=== PATIENT | female | born 1930 | race Two or more races ===

== ENCOUNTER 2018-10-28 21:04 | Inpatient (IN) | payer MEDICARE, MEDICAID ==
[~2018-10-28] VITALS: Ht 160 cm; Wt 49.9 kg
--- NOTE | 2018-10-28 21:10 | NUR ---
ED Nurse Note: Received report from emt that patient was brought in because she was unable to meri assistive device.
--- NOTE | 2018-10-28 21:20 | Emergency Room Report ---
History of Present Illness General Chief Complaint: Generalized Weakness Source: EMS Present Illness HPI Patient is an 88-year-old female brought in by EMS after increased generalized weakness. Patient was noted to have increased weakness all over. She is normally able to move her wheelchair by herself. Patient was unable to perform this maneuver at this time. Patient had no recent trauma. She was currently being treated with antibiotics for a urinary tract infection. She had not been vomiting. History is limited by patient's dementia and poor historian.Patient had not been noted to have any vomiting or fever at the facility. Allergies: Coded Allergies: No Known Allergies (Unverified , 10/28/18) Patient History Past Medical History: see triage record Last Menstrual Period: NILSA Now: No Reviewed Nursing Documentation: PMH: Agreed; PSxH: Agreed Nursing Documentation-PMH Hx Cardiac Problems: No - encephalopathy, hyperlipidemia History Of Psychiatric Problem: Yes - schizophrenia, anxiety, alzheimers Review of Systems All Other Systems: limited - by poor historian Physical Exam Vital Signs Date Time Temp Pulse Resp B/P (MAP) Pulse Ox O2 Delivery O2 Flow Rate FiO2 10/28/18 21:06 97.5 72 16 97/50 95 Room Air General Appearance: non-toxic, thin, Chronically Ill Head: normocephalic Neck: normal inspection, full range of motion Respiratory: normal inspection, lungs clear, normal breath sounds, no rhonchi Cardiovascular #1: normal peripheral pulses, regular rate, rhythm, no edema Gastrointestinal: normal inspection Musculoskeletal: normal inspection, back normal, digits/nails normal Neurologic: normal inspection, alert, responsive, motor weakness Skin: normal inspection, normal color Medical Decision Making Diagnostic Impression: Primary Impression: Episode of generalized weakness Additional Impression: Dehydration ER Course Patient presented for generalized weakness. Differential diagnosis included was not limited to anemia, urinary tract infection, electrolyte abnormality, hypothyroidism, myocardial infarction, myasthenia gravis, dehydration, among others. Because of complexity of patient's case laboratory testing and imaging studies were ordered. Patient was noted to have unremarkable white blood count. Patient was noted to have no evidence of significant anemia. Patient started on IV fluids. She did not show any evidence of focal neurologic deficit. EKG interpreted by me showed normal sinus rhythm with a rate of [address] or T wave changes. QTc was noted to be 471 which is slightly prolonged. QT prolongation is likely due to patient's recent Cipro use.Patient was started on IV fluids. Dr. Michael Dillard was contacted for inpatient management Labs Test 10/28/18 23:30 White Blood Count 6.3 K/UL (4.8-10.8) Red Blood Count 3.77 M/UL (4.20-5.40) Hemoglobin 12.2 G/DL (12.0-16.0) Hematocrit 34.6 % (37.0-47.0) Mean Corpuscular Volume 92 FL (80-99) Mean Corpuscular Hemoglobin 32.3 PG (27.0-31.0) Mean Corpuscular Hemoglobin Concent 35.1 G/DL (32.0-36.0) Red Cell Distribution Width 11.7 % (11.6-14.8) Platelet Count 178 K/UL (150-450) Mean Platelet Volume 7.2 FL (6.5-10.1) Neutrophils (%) (Auto) 46.5 % (45.0-75.0) Lymphocytes (%) (Auto) 39.6 % (20.0-45.0) Monocytes (%) (Auto) 9.5 % (1.0-10.0) Eosinophils (%) (Auto) 3.0 % (0.0-3.0) Basophils (%) (Auto) 1.4 % (0.0-2.0) Sodium Level 141 MMOL/L (136-145) Potassium Level 3.9 MMOL/L (3.5-5.1) Chloride Level 106 MMOL/L (98-107) Carbon Dioxide Level 29 MMOL/L (21-32) Anion Gap 6 mmol/L (5-15) Blood Urea Nitrogen 21 mg/dL (7-18) Creatinine 0.9 MG/DL (0.55-1.30) Estimat Glomerular Filtration Rate mL/min (>60) Glucose Level 130 MG/DL (74-106) Lactic Acid Level 0.90 mmol/L (0.4-2.0) Calcium Level 9.0 MG/DL (8.5-10.1) Phosphorus Level 3.3 MG/DL (2.5-4.9) Magnesium Level 1.9 MG/DL (1.8-2.4) Total Bilirubin 0.4 MG/DL (0.2-1.0) Aspartate Amino Transf (AST/SGOT) 17 U/L (15-37) Alanine Aminotransferase (ALT/SGPT) 21 U/L (12-78) Alkaline Phosphatase 111 U/L (46-116) Total Creatine Kinase 26 U/L (26-308) Creatine Kinase MB 0.5 NG/ML (0.0-3.6) Creatine Kinase MB Relative Index 1.9 Troponin I 0.010 ng/mL (0.000-0.056) Total Protein 7.3 G/DL (6.4-8.2) Albumin 3.2 G/DL (3.4-5.0) Globulin 4.1 g/dL Albumin/Globulin Ratio 0.8 (1.0-2.7) EKG Diagnostic Results Rate: normal Rhythm: NSR ST Segments: no acute changes Last Vital Signs Date Time Temp Pulse Resp B/P (MAP) Pulse Ox O2 Delivery O2 Flow Rate FiO2 10/28/18 21:06 97.5 72 16 97/50 95 Room Air Status: improved Disposition: ADMITTED INPATIENT Condition: Serious Derek Shaw MD Oct 28, 2018 21:19
[2018-10-28] MEDS ORDERED: NAMENDA10 MG ORAL (21:44)
[2018-10-28] MEDS ORDERED: LEVAQUIN500 MG ORAL (21:44)
[2018-10-28] MEDS ORDERED: ATORVASTATIN CA10 MG ORAL (21:44)
[2018-10-28] MEDS ORDERED: QUETIAPINE FUMA25 MG ORAL (21:44)
[2018-10-28] MEDS ORDERED: LACTULOSE10 GM/153 PO (21:44)
[2018-10-28 21:51] VITALS: BP 97/50
[2018-10-28 23:50] LABS: ANION GAP 6 mmol/L (5-15); BASOPHILS % (AUTO) 1.4 % (0.0-2.0); BLOOD UREA NITROGEN 21 mg/dL (7-18); CARBON DIOXIDE 29 MMOL/L (21-32); CHLORIDE 106 MMOL/L (98-107); CREATININE 0.9 MG/DL (0.55-1.30); HEMATOCRIT 34.6 % (37.0-47.0); HEMOGLOBIN 12.2 G/DL (12.0-16.0); LYMPHOCYTES % (AUTO) 39.6 % (20.0-45.0); MEAN CORPUSCULAR VOLUME 92 FL (80-99); MONOCYTES % (AUTO) 9.5 % (1.0-10.0); NEUTROPHILS % (AUTO) 46.5 % (45.0-75.0); PLATELET COUNT 178 K/UL (150-450); POTASSIUM 3.9 MMOL/L (3.5-5.1); RED BLOOD COUNT 3.77 M/UL (4.20-5.40); RED CELL DISTRIBUTION WIDTH 11.7 % (11.6-14.8); SODIUM 141 MMOL/L (136-145); WHITE BLOOD COUNT 6.3 K/UL (4.8-10.8)
[2018-10-29] VITALS (7 sets, daily range): BP systolic 102–122; BP diastolic 61–68
--- NOTE | 2018-10-29 | NUR ---
ED Nurse Note: Assumed care of pt per CN; Pt in bed resting on magnetic doctor with no distress noted.
[2018-10-29 00:03] LABS: ALANINE AMINOTRANSFERASE 21 U/L (12-78); ALBUMIN 3.2 G/DL (3.4-5.0); ALBUMIN/GLOBULIN RATIO 0.8 (1.0-2.7); ALKALINE PHOSPHATASE 111 U/L (46-116); ASPARTATE AMINO TRANSFERASE 17 U/L (15-37); BILIRUBIN,TOTAL 0.4 MG/DL (0.2-1.0); CKMB 0.5 NG/ML (0.0-3.6); CREATINE KINASE 26 U/L (26-308); PHOSPHORUS 3.3 MG/DL (2.5-4.9)
--- NOTE | 2018-10-29 01:02 | NUR ---
ED Nurse Note: Received Bridge orders for MD Dillard from [facility]. Will endorse to floor RN during report.
--- NOTE | 2018-10-29 01:24 | NUR ---
ED Nurse Note: Report given to Laura Busby RN on over telephone. Pt stable. Waiting for assistance to take the pt to the floor.
--- NOTE | 2018-10-29 01:55 | NUR ---
NURSE NOTES: Received pt. from ED via criss. Pt. transferred to bed without any incident. [place] pt. to room, unit, and hospital policies. Received report from LIDA Arana. radiation monitor is in placed, IV site intact, asymptomatic, and patent, bed is in the lowest position and locked, call light within reach. No acute distress noted at this time. Will call Dr. Dillard for admission orders.
--- NOTE | 2018-10-29 02:00 | NUR ---
NURSE NOTES: Received bridging orders from ED physician until orders are received from admitting physician.
--- NOTE | 2018-10-29 06:03 | NUR ---
NURSE NOTES: Received admission orders from Dr. Dillard. Will note and carry out.
--- NOTE | 2018-10-29 07:20 | NUR ---
HAND-OFF: Report given to LIDA Villela. Pt. is in stable condition. Plan of care endorsed.
--- NOTE | 2018-10-29 07:31 | NUR ---
NURSE NOTES: received report from LIDA Sanchez. Bed is in lowest position, side rails up X2, and call light is within reach. Will continue to monitor.
[2018-10-29] MEDS ORDERED: Levofloxacin 500mg tab ORAL SCH (09:00)
[2018-10-29] MEDS: Memantine 10mg tab ORAL SCH ×2 (09:21→17:38)
--- NOTE | 2018-10-29 09:33 | NUR ---
CASE MANAGEMENT:REVIEW BIBA FROM [facility] CC: GENERALIZED WEAKNESS SI:DEHYDRATION. GENERALIZED WEAKNESS 97.5 72 16 97/50 95% ON RA BUN+21 GLUCOSE+130 IS: 1L NS BOLUS CXR BLOOD CX : TO TELEMETRY IS: IVF@75/HR LEVAQUIN PO QD INTERQUAL CRITERIA MET
--- NOTE | 2018-10-29 12:05 | Diagnostic Imaging Report ---
Indication: Dyspnea Comparison: None A single view chest radiograph was obtained. Findings: Lung volumes are low. Hiatal hernia suspected. Heart is enlarged. Mild interstitial edema suspected. Bones are osteopenic. IMPRESSION: Mild interstitial edema suspected
--- NOTE | 2018-10-29 15:45 | Cardiology Report ---
APPROVED REPORT EKG Measurement Heart [id number] CO [id number] Normal sinus rhythm Normal ECG
--- NOTE | 2018-10-29 18:00 | Consultation ---
DATE OF CONSULTATION: 10/29/2018 PSYCHIATRY CONSULTATION CONSULTING PHYSICIAN: Lucrecia Milan M.D. HISTORY OF PRESENT ILLNESS: The patient is an 88-year-old female with history of dementia, multiple medical problems including encephalopathy, schizophrenia, anxiety, hyperlipidemia, who has been admitted to the hospital for medical stabilization. The patient was admitted due to general weakness. The patient is confused and unable to provide history. She is able to answer simple questions. She is a poor historian. She endorses weakness, fatigue, anxiety, and waxing and waning consciousness. PAST PSYCHIATRIC HISTORY: Schizophrenia, encephalopathy, anxiety. PAST MEDICAL HISTORY: Hyperlipidemia, hypertension. She is wheelchair bound. ALLERGIES: No known drug allergies. SUBSTANCE ABUSE HISTORY: No known history of illicit drug use or alcohol. MENTAL STATUS EXAMINATION: The patient is alert and oriented to self and place. She is a poor historian and is confused. Mood is anxious. Affect is constricted, congruent with mood. Thought process is concrete. Thought content, no suicidal or homicidal ideations. ASSESSMENT: Demorest I Dementia with behavioral disturbance, schizophrenia, anxiety disorder, encephalopathy due to toxin. Demorest II Deferred. Demorest III As above. Demorest IV Low. Demorest V 20 PLAN: 1. The patient will be continued on Seroquel 12.5 mg in the morning. 2. Start the patient on Seroquel 12.5 p.r.n. 3. Provide the patient with reality orientation. Lucrecia Milan M.D. DR: Nghia JOB#: [id number] CC:
--- NOTE | 2018-10-29 18:17 | NUR ---
NURSE NOTES: Patients heart monitor was removed. She is a transfer to room 406-1. Pt pulled out her IV a total of [address] Dillard aware that there is currently no IV access. Per , ok to dc IV
--- NOTE | 2018-10-29 19:39 | NUR ---
HAND-OFF: Report given to LIDA Tang. Plan of care endorsed.
--- NOTE | 2018-10-29 19:40 | NUR ---
NURSE NOTES: Received pt from LIDA Canales. Pt awake, alert, and talkative. Bed in lowest position. Call light within reach. Bed alarm on. Will continue to monitor.
--- NOTE | 2018-10-29 21:15 | History and Physical Report ---
DATE OF ADMISSION: 10/28/2018 HISTORY OF PRESENT ILLNESS: This is an 88-year-old female who came to the emergency room for failure to thrive, generalized weakness, nausea, and vomiting. The patient is currently alert, awake, confused and has been eating about 50%. PAST MEDICAL HISTORY: CVA, dementia, depression. ALLERGIES: NKA. MEDICATIONS: See the list. PHYSICAL EXAMINATION: GENERAL: This is an elderly female, currently confused, but looks very appropriate. VITAL SIGNS: Blood pressure 130/70, pulse 74, respirations 18. No fever. SKIN: Good skin turgor. HEENT: NAD. CHEST: Bilaterally clear. CARDIOVASCULAR: Regular rhythm. No gallop. No murmur. ABDOMEN: Soft. Positive bowel sounds. Nontender. EXTREMITIES: No CCE. NEUROLOGICAL: Generalized weakness. GENITOURINARY: Deferred. LABORATORY DATA: White count 4.3. We will check UA. ASSESSMENT: 1. Severe malnutrition. 2. Failure to thrive. 3. Dehydration, rule out UTI. 4. Encephalopathy. PLAN: We will do calorie count. GI consult. Continue Boost 3 times a day. Michael Dillard M.D. DR: Angelica JOB#: [id number] CC:
--- NOTE | 2018-10-29 22:01 | NUR ---
HAND-OFF: Report given to LIDA Kim. Pt stable.
--- NOTE | 2018-10-29 22:10 | NUR ---
NURSE NOTES: Received patient from Tele via hospital bed from Kitty HILTON. On RA, no SOB, no acute distress, in stable condition. No IV access noted d/t patient pulled out multiple times in Tele, MD aware. Checked belongings, oriented pt to surroundings. All order transferred. Bed in lowest position, locked, alarms on. Call light in reach.
[2018-10-30] VITALS: BP 126/81
[2018-10-30 04:00] VITALS: BP 138/91
--- NOTE | 2018-10-30 07:57 | NUR ---
NURSE NOTES: Patient alert x3, japanese speaking, in room air, no sign of distress and shortness of breath. No sign of chest pain. Patient on calory count started this breakfast, director of emergency nursing Charlotte is aware. Patient incontinent x2. Skin intact. No IV, MD Mccrary is aware. Call light within reach. Will keep monitoring.
[2018-10-30 08:00] VITALS: BP 146/66
[2018-10-30] MEDS: Memantine 10mg tab ORAL SCH ×2 (09:23→17:28)
--- NOTE | 2018-10-30 10:44 | NUR ---
NURSE NOTES: Patient ate well her breakfast, fed by nursing service administrator, Charlotte. Will keep monitoring patient's intake.
[2018-10-30 12:00] VITALS: BP 97/57
[2018-10-30 16:00] VITALS: BP 130/65
--- NOTE | 2018-10-30 16:33 | NUR ---
NURSE NOTES: Patient resting, no sign of distress and shortness of breath. Will keep monitoring.
--- NOTE | 2018-10-30 19:20 | NUR ---
HAND-OFF: Report given to LIDA Lazcano.
--- NOTE | 2018-10-30 19:30 | NUR ---
NURSE NOTES: Received patient in bed awake with periods of confusion. No facial grimacing noted. No IV access, MD aware. Bed in lowest position and locked. Call light within reach. Will continue to monitor.
[2018-10-30 20:00] VITALS: BP 104/67
--- NOTE | 2018-10-30 21:27 | General Progress Note ---
Assessment/Plan Status: stable Assessment/Plan Dementia with behavioral disturbance, schizophrenia, anxiety disorder, encephalopathy due to toxin. PLAN: 1. The patient will be continued on Seroquel 12.5 mg in the morning. 2. Start the patient on Seroquel 12.5 p.r.n. 3. Provide the patient with reality orientation. Subjective Neurologic/Psychiatric: Reports: anxiety, emotional problems Allergies: Coded Allergies: No Known Allergies (Unverified , 10/28/18) Objective Last 24 Hour Vital Signs Date Time Temp Pulse Resp B/P (MAP) Pulse Ox O2 Delivery O2 Flow Rate FiO2 10/30/18 20:00 97.4 74 16 104/67 (79) 95 10/30/18 16:00 98.4 80 18 130/65 (86) 96 10/30/18 12:00 98.0 72 18 97/57 (70) 96 10/30/18 09:00 Room Air 10/30/18 08:00 97.8 71 18 146/66 (92) 96 10/30/18 04:00 97.1 69 19 138/91 (107) 96 10/30/18 00:00 97.1 71 20 126/81 (96) 96 Intake and Output 10/29/18 10/30/18 19:00 07:00 Intake Total 240 ml 100 ml Balance 240 ml 100 ml Intake Oral 240 ml 100 ml # Voids 3 1 Height (Feet): 5 Height (Inches): 3.00 Weight (Pounds): 110 General Appearance: no apparent distress, alert, confused, agitated Lucrecia Milan MD Oct 30, 2018 21:27
[2018-10-31] VITALS: BP 121/57
[2018-10-31 04:00] VITALS: BP 98/62
--- NOTE | 2018-10-31 06:16 | NUR ---
NURSE NOTES: Patient positive for MRSA nares as [facility] Dillard spoke with Luis Manuel on answering service and left a message. Still awaiting call back.
--- NOTE | 2018-10-31 07:11 | NUR ---
HAND-OFF: Report given to LIDA Mitchell. Endorsed to am nurse re patient positive for MRSA nares, still awaiting call back from Dr. Dillard for further orders.
--- NOTE | 2018-10-31 07:24 | NUR ---
NURSE NOTES: Patient sleeping, in room air, no sign of distress and shortness of breath. No sign of chest pain. No IV, MD aware. Patient on calory count, surgeon assistant Nereida notified. Patient on isolation for MRSA-nares, PM RN Radha tried to notify MD last night, left a message on the answering service, will try to call back to get an order. Side rails up x2, breaks engaged, bed at lowest. Call light within reach. Will keep on monitoring.
[2018-10-31 08:00] VITALS: BP 136/80
[2018-10-31] MEDS: Memantine 10mg tab ORAL SCH ×2 (08:17→17:35)
--- NOTE | 2018-10-31 10:14 | NUR ---
NURSE NOTES: I communicated Dr Dillard, regarding patient is positive for MRSA. Waiting for order.
--- NOTE | 2018-10-31 10:16 | NUR ---
NURSE NOTES: Order received from Dr Dillard, will care the order as ordered by .
[2018-10-31 12:00] VITALS: BP 104/61
--- NOTE | 2018-10-31 12:52 | NUR ---
CASE MANAGEMENT: REVIEW 10/31/2018 SI:DEHYDRATION. GENERALIZED WEAKNESS T 98 HR 65 RR 19 B/P 104/61 SATS 96% ON RA NO LABS TODAY IS: NAMENDA PO BID MUPROCIN TOP BID LIPITOR PO QHS LEVAQUIN PO QD SEROQUEL PO QD : MED/SURG STATUS PLAN OF CARE: DC TO SNF 11/01/18
--- NOTE | 2018-10-31 12:53 | NUR ---
DISCHARGE PLANNING: NOTE PATIENT TO BE DISCHARGED TO [facility] 11/01. TRANSPORTATION TO BE ARRANGED 11/01. PATIENT TO GO TO ROOM 29D. CLINICALS FAXED TO [facility] F: [phone]/T: [phone]
--- NOTE | 2018-10-31 15:29 | Progress Note ---
SUBJECTIVE: This is an elderly female, sitting in the bed, slightly improving. OBJECTIVE: VITAL SIGNS: Stable. CHEST: Bilaterally clear. CARDIOVASCULAR: Regular rhythm. ABDOMEN: Soft. EXTREMITIES: No CCE. NEUROLOGICAL: Generalized weakness. ASSESSMENT AND PLAN: 1. Severe malnutrition. 2. Failure to thrive. 3. Dehydration. 4. Urinary tract infection. 5. Metabolic encephalopathy. We will currently continue p.o. feeding. Continue IV antibiotics. Monitor cultures. Michael Dillard M.D. DR: Douglas JOB#: [id number] CC:
[2018-10-31 16:00] VITALS: BP 100/64
--- NOTE | 2018-10-31 19:22 | NUR ---
HAND-OFF: Report given to LIDA Garcia.
--- NOTE | 2018-10-31 19:25 | NUR ---
NURSE NOTES: Received patient in bed trying to get out of bed. Move patient closer to the nursing station for fall precaution. Side rails up x3. Bed in lowest position and locked. Call light within reach. Will continue to monitor.
[2018-10-31 20:00] VITALS: BP_SYST 104; BP_SYST 132; BP_DIAS 50; BP_DIAS 77
[2018-11-01] VITALS: BP 102/52
[2018-11-01 04:00] VITALS: BP 108/52
--- NOTE | 2018-11-01 07:35 | NUR ---
HAND-OFF: Report given to LIDA Schulte.
--- NOTE | 2018-11-01 07:45 | NUR ---
NURSE NOTES: Received patient on bed, asleep. No oIV access, MD aware. Bed in low and locked position, call light within reach. No signs of respiratory distress or pain. Room board updated, will continue to monitor.
[2018-11-01 08:00] VITALS: BP 121/62
[2018-11-01] MEDS: Memantine 10mg tab ORAL SCH (09:27)
--- NOTE | 2018-11-01 10:48 | GI Initial Consult Note ---
History of Present Illness General Date patient seen: Nov 01, 2018 Time patient seen: 10:43 Reason for Hospitalization: Generalized Weakness Referring physician: DEDRICK MAY Reason for Consultation: FTT Present Illness HPI Patient is an 88-year-old female brought in by EMS after increased generalized weakness. Patient was noted to have increased weakness all over. She is normally able to move her wheelchair by herself. Patient was unable to perform this maneuver at this time. Patient had no recent trauma. She was currently being treated with antibiotics for a urinary tract infection. She had not been vomiting. History is limited by patient's dementia and poor historian.Patient had not been noted to have any vomiting or fever at the facility. GI consulted for failure to thrive. ROS limited, patient seen awake alert no apparent distress with no active signs or symptoms of nausea vomiting. Patient with AMS, all information obtained from EMR. Per RN report the patient has been eating approximately 50% of her meals and requires a one-to-one feeder. Labs reviewed; no blood draws since 28 October. No leukocytosis, no anemia, no transaminitis noted. Unknown history of endoscopic colonoscopy. Home Meds Reported Medications Quetiapine Fumarate* (SEROQUEL*) 25 Mg Tablet, 12.5 MG ORAL DAILY, TAB 10/28/18 Memantine Hcl* (NAMENDA*) 10 Mg Tablet, 10 MG ORAL TWICE A DAY, TAB 10/28/18 Levofloxacin* (LEVAQUIN*) 500 Mg Tablet, 500 MG ORAL DAILY, TAB 10/28/18 Lactulose (LACTULOSE) 10 Gm/15 Ml Solution, 20 GM PO THREE TIMES A DAY 10/28/18 Atorvastatin Calcium* (LIPITOR*) 10 Mg Tablet, 10 MG ORAL BEDTIME, TAB 10/28/18 Med list reviewed/reconciled: Yes Allergies: Coded Allergies: No Known Allergies (Unverified , 10/28/18) Patient History Limited by: medical condition History Provided By: Medical Record PMH Narrative Past Medical History: see triage record Last Menstrual Period: NILSA Now: No Reviewed Nursing Documentation: PMH: Agreed; PSxH: Agreed Nursing Documentation-PMH Hx Cardiac Problems: No - encephalopathy, hyperlipidemia History Of Psychiatric Problem: Yes - schizophrenia, anxiety, alzheimers Review of Systems All Other Systems: limited Physical Exam Vital Signs Date Time Temp Pulse Resp B/P (MAP) Pulse Ox O2 Delivery O2 Flow Rate FiO2 10/28/18 21:06 97.5 72 16 97/50 95 Room Air Sp02 EP Interpretation: reviewed, normal General Appearance: well appearing, no apparent distress, alert Head: normocephalic EENT: PERRL/EOMI, normal ENT inspection Neck: supple Respiratory: normal breath sounds, no respiratory distress Cardiovascular: normal rate Gastrointestinal: normal inspection, non tender, soft, normal bowel sounds, non -distended Rectal: deferred Genitourinary: no CVA tenderness Musculoskeletal: normal inspection, back normal Neurologic: alert, responsive Skin: normal inspection, normal color, no rash, warm/dry, palpation normal, well hydrated Lymphatic: normal inspection, no adenopathy Current Medications Current Medications Medications (Trade) Dose Ordered Sig/Kate Route PRN Reason Start Time Stop Time Status Last Admin Dose Admin Atorvastatin Calcium (Lipitor) 10 mg BEDTIME ORAL 10/30/18 21:00 11/29/18 20:59 10/31/18 20:46 Levofloxacin (Levaquin) 250 mg DAILY ORAL 10/30/18 09:00 11/06/18 08:59 11/01/18 09:27 Memantine (Namenda) 10 mg TWICE A DAY ORAL 10/30/18 09:00 11/28/18 08:59 11/01/18 09:27 Mupirocin (Bactroban Oint) 1 applic TWICE A DAY TOPIC 10/31/18 18:00 11/05/18 17:59 11/01/18 09:28 Quetiapine Fumarate (SEROquel) 12.5 mg DAILY ORAL 10/30/18 09:00 11/28/18 08:59 11/01/18 09:28 Quetiapine Fumarate (SEROquel) 12.5 mg Q4H PRN ORAL agitation 10/30/18 02:00 11/28/18 13:59 10/31/18 20:46 GI: Plan Problems: (1) Failure to thrive (2) Severe malnutrition (3) Generalized weakness (4) Episode of generalized weakness (5) Dehydration Plan We will consider PEG if nutritional needs are not met Calorie count in progress Supportive care Strict aspiration precautions Patient on diet One-to-one feeder Will consider Marinol Bowel regimen >> Colace plus MiraLAX follow-up labs Discussed with Dr. Matthews. Thank you for this patient referral, we will follow. The patient was seen and examined at bedside and all new and available data was reviewed in the patients chart. I agree with the above findings, impression and plan. (Patient seen earlier today. Signature stamp does not reflect patient encounter time.). - MD Trina [facility] WestElpidio LINN Nov 01, 2018 10:48
--- NOTE | 2018-11-01 12:00 | Progress Note ---
DATE: 11/01/2018 SUBJECTIVE: This is an elderly female, confused. She is and slightly agitated, but talking. OBJECTIVE: VITAL SIGNS: Blood pressure is 108/52, pulse 71, no fever. The patient is a DNR. CHEST: Bilaterally clear. CARDIOVASCULAR: Regular rhythm. No gallop. No murmur. ABDOMEN: Soft. EXTREMITIES: No CCE. NEUROLOGIC: Generalized weakness and confusion. GENITOURINARY: Deferred. LABORATORY DATA: The patient has no labs today. ASSESSMENT AND PLAN: 1. Psychosis. 2. Depression. 3. Dementia. 4. Failure to thrive. 5. Severe malnutrition. We will currently continue current treatment, Psych consult, and increase p.o. fluids and probably adjustment of psychotropics. Psych is already on case. Michael Dillard M.D. DR: GEOVANI JOB#: [id number] CC:
--- NOTE | 2018-11-01 13:31 | NUR ---
*-* DISCHARGE PLANNING PATIENT IS DISCAHRGED TO: [facility] ROOM# 290 SKILLED T:[phone] FOR NURSE TO NURSE REPORT [facility] HAS BEEN ARRANGED FOR DUMPER BAILER OPERATOR AT [id number]
[2018-11-01] MEDS ORDERED: QUETIAPINE FUMA25 MG ORAL (14:26)
[2018-11-01] MEDS ORDERED: BACTROBAN 2% OI15 GM TOPIC (14:26)
--- NOTE | 2018-11-01 14:46 | NUR ---
NURSE NOTES: Gave telephone report to licensed nurse Cardenas.
[2018-11-01] MEDS: Docusate 100mg cap ORAL SCH ×2 (15:33→15:34)
--- NOTE | 2018-11-01 16:00 | NUR ---
NURSE NOTES: Patient discharged. ID bands removed, no personal belongings. Patient needs met and patient kept comfortable at all times. Patient departed via ambulance.
[2018-11-01] MEDS ORDERED: Miralax 17gm pkt ORAL SCH (21:00)
--- NOTE | 2018-11-01 21:23 | General Progress Note ---
Assessment/Plan Assessment/Plan Dementia with behavioral disturbance, schizophrenia, anxiety disorder, encephalopathy due to toxin. PLAN: 1. The patient will be continued on Seroquel 12.5 mg in the morning. 2. Start the patient on Seroquel 12.5 p.r.n. 3. Provide the patient with reality orientation. Subjective Neurologic/Psychiatric: Reports: anxiety, depressed Allergies: Coded Allergies: No Known Allergies (Unverified , 10/28/18) Objective Last 24 Hour Vital Signs Date Time Temp Pulse Resp B/P (MAP) Pulse Ox O2 Delivery O2 Flow Rate FiO2 11/01/18 09:00 Room Air 11/01/18 08:00 98.1 64 18 121/62 (81) 97 11/01/18 04:00 97.9 71 18 108/52 (70) 100 11/01/18 00:00 98.0 65 18 102/52 (69) 96 Intake and Output 10/31/18 11/01/18 18:59 06:59 Intake Total 500 ml Balance 500 ml Other 500 ml # Voids 3 Height (Feet): 5 Height (Inches): 3.00 Weight (Pounds): 110 General Appearance: alert, confused, agitated Lucrecia Milan MD Nov 01, 2018 21:23
--- NOTE | 2018-11-02 11:31 | Discharge Summary ---
Discharge Summary Discharge Summary _ DATE OF ADMISSION: 10/28/2018 DATE OF DISCHARGE: 11/01/2018 DISCHARGED BY: Dr. Dillard REASON FOR ADMISSION: 88 years old female with past medical history of CVA, dementia, depression, presented to emergency department with generalized weakness. Patient was treated with antibiotic for UTI at the facility. History was limited by patient dementia. Upon evaluation vital signs revealed blood pressure 97/50. Laboratory workup revealed no leukocytosis , stable hemoglobin hematocrit. BUN 21 creatinine 0.9, stable electrolytes. Lactic acid 0.9. Troponin negative . EKG revealed normal sinus rhythm , no acute ischemic changes. Albumin 3.2. Chest x-ray revealed possible mild interstitial edema. Patient admitted for dehydration and failure to thrive. CONSULTANTS: GI specialist Dr. Matthews psychiatrist [facility] COURSE: Patient was admitted to medical surgical floor. Nutritional consult was requested . Calorie count [id number], Patient started on IV fluids with close monitoring of renal parameters and electrolytes. GI specialist followed. Bowel regimen instituted. Strict aspiration precautions were ma in and plan of care. Antibiotic for UTI continued from [facility] facility. Blood cultures were negative. Patient remained afebrile , no leukocytosis. Psychiatrist closely followed. Psychiatric medication regimen was optimized. Patient was provided with reality orientation. Patient clinically stabilized. Patient was ready for discharge to [facility] facility. Continue close monitoring of nutritional intake at the facility. Consider PEG placement if nutritional goals not met. Consider Marinol for appetite improvement . FINAL DIAGNOSES: Severe protein calorie malnutrition Dehydration Urinary tract infection Dementia with behavioral disturbances Schizophrenia Encephalopathy due to toxin Anxiety disorder DISCHARGE MEDICATIONS: See Medication Reconciliation list. DISCHARGE INSTRUCTIONS: Patient was discharged to the [facility] facility. Follow up with medical doctor at the facility. I have been assigned to dictate discharge summary for this account. I was not involved in the patient's management. Мария Kruse NP Nov 02, 2018 11:31
== END 2018-11-01 16:09 | DRG 640 ==
LOC: EDBD 21:04 → EMR 21:42 → 2E 22:58 → EDBEDREQ 10-29 00:54 → 4E 10-29 22:38
DX: E86.0 Dehydration (principal); E43 Unspecified severe protein-calorie malnutrition; G92 Toxic encephalopathy; N39.0 Urinary tract infection, site not specified; Z68.1 Body mass index [BMI] 19.9 or less, adult; F03.91 Unspecified dementia, unspecified severity, with behavioral disturbance; R53.1 Weakness; Z86.73 Personal history of transient ischemic attack (TIA), and cerebral infarction without residual deficits; F20.9 Schizophrenia, unspecified; F41.9 Anxiety disorder, unspecified; E78.5 Hyperlipidemia, unspecified; I10 Essential (primary) hypertension; R62.7 Adult failure to thrive
CPT/HCPCS: 36415; 71045; 80053; 82550; 82553; 83605; 83735; 84100; 84484; 85025; 87040; 87081; 93005; 96360; 99285